=== PATIENT | female | born 1950 | race Caucasian/White ===

== ENCOUNTER 2019-11-27 14:34 | Outpatient (CLI) | payer MEDICARE, SELFPAY ==
--- NOTE | ~2019-11-27 | CT_ITS ---
EXAMINATION: CT abdomen pelvis wo con DATE: 11/27/2019 15:06 INDICATION: Diverticulosis of the bladder TECHNIQUE: Computed tomography (CT) of the abdomen and pelvis was performed without intravenous contr ast. The dose-length product (DLP) was 576.44 mGy-cm. Automated exposure control and iterative recons truction technique were employed. COMPARISON: 06/26/1917, 06/29/2017 FINDINGS: There is subsegmental atelectasis of the left lower lobe. The heart size is normal. Cysts o f the liver measure up to 1.4 cm. There is a large lamellated stone of the otherwise unremarkable gal lbladder. The spleen, pancreas, and left adrenal gland are normal. A stable 2.3 cm right adrenal mass is most consistent with an adenoma given the lack of interval change. The kidneys are unremarkable. No pathologically enlarged abdominal or pelvic lymph nodes are identified. There is no free intraperi toneal gas or evidence of bowel obstruction. Colonic diverticulosis is present without evidence of di verticulitis. The appendix is normal. There is severe thoracic and lumbar spondylosis. IMPRESSION: 1. Colonic diverticulosis without diverticulitis. 2. Cholelithiasis without evidence of cholecystitis. Reviewed, dictated and finalized at location A.
== END 2019-11-27 14:35 | disposition home or self-care (01) ==
LOC: ANHIMG 14:47
PROVIDERS: PCP Nurse Practitioner Family; Visit Provider Nurse Practitioner Family
DX: N30.80 Other cystitis without hematuria (principal); R10.9 Unspecified abdominal pain; N28.9 Disorder of kidney and ureter, unspecified; K57.90 Diverticulosis of intestine, part unspecified, without perforation or abscess without bleeding; K80.20 Calculus of gallbladder without cholecystitis without obstruction
CPT/HCPCS: 74176

== ENCOUNTER 2022-09-19 19:39 | Emergency (ER) | payer OTHER, MEDICARE, SELFPAY ==
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
[2022-09-19 19:37] VITALS: BP 154/89; PULSE 91; RESP 18; TEMP 36.9; O2SAT 100
[2022-09-19 20:48] VITALS: BP 136/82; PULSE 89; RESP 17; O2SAT 100
[2022-09-19 20:49] LABS: Basophils Absolute Auto 0.1 K/mm3 (0.0-0.1); Basophils Percent Auto 0.9 % (0.2-1.2); Eosinophils Absolute Auto 0.2 K/mm3 (0-0.3); Eosinophils Percent Auto 1.5 % (0-4.4); Hematocrit 37.3 % (37.0-47.0); Hemoglobin 11.8 g/dL (12.0-15.0); Immature Granulocyte Absolute 0.05 K/mm3 (0.00-0.031); Immature Granulocyte Percent A 0.5 % (0-0.5); Lymphocytes Absolute Auto 1.49 K/mm3 (0.9-3.2); Lymphocytes Percent Auto 14.3 % (18.3-44.2); Mean Corpuscular HGB Conc 31.6 g/dl (32-36); Mean Corpuscular Hemoglobin 28.2 pg (26-34); Mean Corpuscular Volume 89.2 fl (80-100); Mean Platelet Volume 10.1 fl (7.4-10.4); Monocytes Absolute Auto 0.9 K/mm3 (0.1-0.6); Monocytes Percent Auto 8.4 % (2.6-8.5); Neutrophils Absolute Auto 7.8 K/mm3 (1.3-6.7); Neutrophils Percent Auto 74.4 % (45.5-73.1); Platelet Count Result 248 k/mm3 (150-375); Red Blood Count 4.18 M/mm3 (4.2-5.4); Red Cell Distribution Width 13.6 % (11.5-14.5); White Blood Count 10.4 K/mm3 (4.5-10.0)
[2022-09-19 20:59] LABS: Alanine Aminotransferase 17 U/L (6-35); Albumin Level 4.3 g/dL (3.5-5.1); Alkaline Phosphatase 92 U/L (38-126); Anion Gap 6 mmol/L (8-16); Aspartate Amino Transferase 21 U/L (14-36); Bilirubin,Total 0.4 mg/dL (0.2-1.3); Blood Urea Nitrogen 18 mg/dL (7-17); Calcium 9.3 mg/dL (8.4-10.2); Carbon Dioxide 30 mmol/L (22-30); Chloride 100 mmol/L (98-107); Estimated CRCL calculation 55 ml/min; Estimated Glomerular Filt Rate > 60; Glucose 137 mg/dL (65-110); Potassium 3.9 mmol/L (3.4-5.0); Sodium 136 mmol/L (137-145)
[2022-09-19 21:03] LABS: Appearance Urine Clear (Clear); Bacteria Urine None Seen /hpf; Bilirubin Urine Negative (Negative); Blood Urine Trace (Negative); Color Urine Yellow (Yellow); Glucose Urine UA Negative (Negative); Ketones Urine Negative (Negative); Leukocyte Esterase Ur Trace LEU/UL (Negative); Nitrate Urine Negative (Negative); Protein Urine Negative (Negative); RBC Urine 0-2 /hpf (0-2); Squamous Epithelial Cell Urine Few /hpf (Few); Urobilinogen Urine 0.2 mg/dL (<2.0); WBC Urine 0-5 /hpf; pH Urine 5.5 (5.0-9.0)
[2022-09-19 21:09] LABS: Add Urine Microscopic? YES
[2022-09-19 21:27] VITALS: BP 152/67; PULSE 84; RESP 17; O2SAT 100
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
[2022-09-19 22:30] VITALS: BP 159/89; PULSE 94; RESP 19; O2SAT 97
== END 2022-09-19 22:31 | disposition home or self-care (01) ==
PROVIDERS: Emergency Provider Physician Assistant; PCP Internal Medicine
DX: S39.012A Strain of muscle, fascia and tendon of lower back, initial encounter (principal); R10.30 Lower abdominal pain, unspecified; I10 Essential (primary) hypertension; M17.12 Unilateral primary osteoarthritis, left knee; V43.52XA Car driver injured in collision with other type car in traffic accident, initial encounter
CPT/HCPCS: 36415; 73080; 73564; 74177; 80053; 81001; 85025; 96365; 99284; J0131; Q9967

== ENCOUNTER 2023-08-31 13:25 | Emergency (ER) | payer MEDICARE, SELFPAY ==
[2023-08-31 13:28] VITALS: BP 137/77; PULSE 78; RESP 18; TEMP 36.4; O2SAT 100
--- NOTE | 2023-08-31 13:34 | ED.EYEPROB ---
HPI - Eye Problem General Chief complaint: Eye Problems <Christina Smiley PA-C - Last Filed: 08/31/23 15:31> Stated complaint: right eye pain <Christina Smiley PA-C - Last Filed: 08/31/23 15:31> Time Seen by Provider: 08/31/23 13:34 <Christina Smiley PA-C - Last Filed: 08/31/23 15:31> Focused HPI: This is a 72 year old female that presents to the ER for right eye pain. Ongoing since she woke up. Does report history of retinal detachment in this eye about 20 years ago. Reports her right eye has started to become more blurry over the last several months. Denies redness, abnormal discharge or vomiting. GENERAL: Well-appearing, well-nourished, and in no acute distress. HEAD: Normocephalic, atraumatic. EYES: EOMI, no conjunctival injection or abnormal drainage CHEST: Clear to auscultation. ?No respiratory distress. HEART: Regular rate and rhythm.? NEURO: ?Alert and oriented x3. Patient screened in triage and initial orders placed.? ?Additional care and disposition to be based upon?diagnostic testing and treatment. <Christina Smiley PA-C - Last Filed: 08/31/23 15:31> Related Data Allergies/adverse reactions: Allergies Allergy/AdvReac Type Severity Reaction Status Date / Time oxycodone AdvReac Intermediate HALLUCINATI Verified 07/05/17 09:48 ONS morphine AdvReac Unknown HALLUCINATI Verified 07/05/17 09:48 ONS <Christina Smiley PA-C - Last Filed: 08/31/23 15:31> Review of Systems Review of Systems: CONSTITUTIONAL: Denies fever EYES: Reports visual changes. Denies redness, or discharge. <Christina Smiley PA-C - Last Filed: 08/31/23 15:31> All systems reviewed & are unremarkable except as noted in HPI and below <Christina Smiley PA-C - Last Filed: 08/31/23 15:31> PMFSH Past Medical History Medical History: Medical History (Updated 08/31/23 @ 15:26 by Christina L. Smiley, PA-C) HTN (hypertension) <Christina Smiley PA-C - Last Filed: 08/31/23 15:31> Surgical History Surgical History: Surgical History (Updated 09/19/22 @ 21:48 by Krystal Hanson PA-C) No pertinent past surgical history <Christina Smiley PA-C - Last Filed: 08/31/23 15:31> Social History Social History: Social History (Updated 09/19/22 @ 21:48 by Krystal Hanson PA-C) Smoking status: Never smoker <Christina Smiley PA-C - Last Filed: 08/31/23 15:31> Exam Narrative: GENERAL: Well-appearing, well-nourished, and in no acute distress. HEAD: Normocephalic, atraumatic. EYES: PERRLA and EOMI. Visual acuity 20/100 right, 20/40 left. No conjunctival injection or abnormal drainage. Eye pressure 18 on the right, 17 on the left. No fluorescein stain uptake. Eyelid everted, no foreign bodies noted EXTREMITIES: Normal range of motion. No edema. SKIN: Warm, dry, no rash. NEURO: No focal deficits. Alert and oriented x3. PSYCH: Normal mood and affect <Christina Smiley PA-C - Last Filed: 08/31/23 15:31> Course Course Emergency Course: patient updated on consult and need for transfer for higher level of care <Christina Smiley PA-C - Last Filed: 08/31/23 15:31> [employer]/PA Physician Supervision agree with management <Car Gillespie MD - Last Filed: 08/31/23 15:54> Consultations Consultation #1: Spoke with Dr. Pfeiffer, [facility] ophthalmology, about patient and workup. Recommends transfer to the ER for further evaluation <Christina Smiley PA-C - Last Filed: 08/31/23 15:31> Date: 08/31/23 <Christina Smiley PA-C - Last Filed: 08/31/23 15:31> Consultation #2: Dr. Rodriguez accepts transfer to the ER <Christina Smiley PA-C - Last Filed: 08/31/23 15:31> Date: 08/31/23 <Christina Smiley PA-C - Last Filed: 08/31/23 15:31> Vital Signs Vital signs: Vital Signs Temperature 36.4 C 08/31/23 13:28 Pulse Rate 78 08/31/23 13:28 Respiratory Rate 18 08/31/23 13:28 Blood Pressure 137/77 08/31/23 13:28 Pulse Oximetry 100 08/31/23 13:28 Temperature
== END 2023-08-31 16:05 | disposition short-term general hospital (02) ==
LOC: ANHED 15:47
PROVIDERS: Emergency Provider Physician Assistant; PCP Internal Medicine
DX: H53.9 Unspecified visual disturbance (principal); I10 Essential (primary) hypertension
CPT/HCPCS: 99282; A9270